=== PATIENT | female | born 1970 | race Two or more races ===

== ENCOUNTER 2018-08-09 09:04 | Emergency (ER) | payer OTHER ==
[~2018-08-09] VITALS: Ht 175.3 cm; Wt 127.0 kg
[2018-08-09 10:20] LABS: Basophils # (auto) 0.1 uL; Monocytes # (auto) 0.7 uL
[2018-08-09 10:23] LABS: Basophils % (auto) 0.8 % (0.0-2.0); Eosinophils # (auto) 0 uL; Eosinophils % (auto) 0.4 % (0.0-7.0); Hematocrit 32.6 % (36.0-46.0); Hemoglobin 10.8 g/dL (12.2-16.2); Lymphocytes % (auto) 10.2 % (10.0-50.0); Mean Corpuscular Volume 75.8 fL (80.0-100.0); Monocytes % (auto) 7.6 % (0.0-12.0); Neutrophils # (auto) 7.6 uL; Platelet Count (auto) 207 10^3/uL (140-450); Red Blood Cells 4.31 10^6/uL (4.0-5.20); Red Cell Distribution Width 15.9 % (11.8-14.3); White Blood Cell 9.4 10^3/uL (4.4-10.8)
[2018-08-09 10:39] LABS: Calcium 8.2 mg/dL (8.5-10.1); Magnesium 2.2 mg/dL (1.6-2.6); Potassium 3.7 mmol/L (3.5-5.1)
[2018-08-09 10:43] LABS: BUN/Creatinine Ratio 12.3; Bilirubin, Total 0.5 mg/dL (0.2-1.0); Total Protein 6.6 g/dL (6.4-8.2)
[2018-08-09] MEDS ORDERED: SODIUM CHLORIDE 0.9% 1,000 ML IVB ONE (11:03)
[2018-08-09] MEDS ORDERED: HYDROmorphone HCL 2 MG/ML VL IV ONE ×2 (11:15→19:30)
[2018-08-09] MEDS: PROMETHAZINE HCL 25 MG/ML 1ML IV PRN ×2 (11:31→19:42)
[2018-08-09 12:32] LABS: Urine Bacteria NONE SEEN /hpf (None Seen); Urine Blood Negative /uL (Negative); Urine Specific Gravity 1.014 (1.001-1.035); Urine WBC 2 /hpf (0 - 5)
[2018-08-09] MEDS ORDERED: IOHEXOL 350 MG/ML 100ML IJ ONE (12:56)
[2018-08-09] MEDS ORDERED: cefTRIAXone 1GM/50ML D5W 50 ML IV ONE (15:30)
[2018-08-09] MEDS ORDERED: metroNIDAZOLE 500MG/100ML 100 ML IV ONE (17:00)
[2018-08-09] MEDS ORDERED: DOXYCYCLINE 100MG/250ML 250 ML IV ONE (17:00)
[2018-08-09] MEDS ORDERED: DOXYCYCLINE 100 MG TAB/CAP PO ONE (18:45)
[2018-08-09 19:41] VITALS: BP 101/67
== END 2018-08-09 19:51 | disposition short-term general hospital (02) ==
LOC: EDBD 09:04 → ER 09:12
DX: K42.9 Umbilical hernia without obstruction or gangrene (principal); D50.9 Iron deficiency anemia, unspecified; E46 Unspecified protein-calorie malnutrition; R79.1 Abnormal coagulation profile; K81.9 Cholecystitis, unspecified; J45.909 Unspecified asthma, uncomplicated; Z88.6 Allergy status to analgesic agent; Z90.710 Acquired absence of both cervix and uterus
CPT/HCPCS: 36415; 51702; 71045; 71275; 74176; 80053; 81001; 83605; 83690; 83735; 85025; 85379; 87040; 94761; 96361; 96365; 96367; 96375; 99285; J0696; J1170; J2550; J3490; J7030; Q9967

== ENCOUNTER 2020-12-17 20:33 | Emergency (ER) | payer OTHER ==
[~2020-12-17] VITALS: Ht 175.3 cm; Wt 143.3 kg
[2020-12-18 02:24] VITALS: BP 174/101
== END 2020-12-18 03:43 | disposition home or self-care (01) ==
LOC: ER 20:33
DX: S83.91XA Sprain of unspecified site of right knee, initial encounter (principal); S23.9XXA Sprain of unspecified parts of thorax, initial encounter; M62.838 Other muscle spasm; J45.909 Unspecified asthma, uncomplicated; Z90.710 Acquired absence of both cervix and uterus; Z88.6 Allergy status to analgesic agent; Z88.8 Allergy status to other drugs, medicaments and biological substances; V43.52XA Car driver injured in collision with other type car in traffic accident, initial encounter; Y93.89 Activity, other specified; Y92.410 Unspecified street and highway as the place of occurrence of the external cause; Y99.8 Other external cause status
CPT/HCPCS: 70450; 72125; 72128; 72131; 73562